=== PATIENT | male | born 1995 | race African-American/Black ===

== ENCOUNTER 2017-07-11 11:01 | Inpatient (IN) | payer OTHER ==
[2017-07-11 11:15] VITALS: BMI 27.1
--- NOTE | 2017-07-11 13:41 | HP ---
CIWA Score - CIWA Score Nausea/Vomitin-No Nausea/No Vomiting Muscle Tremors: 4-Moderate,w/Arms Extend Anxiety: 4-Mod. Anxious/Guarded Agitation: 4-Moderately Restless Paroxysmal Sweats: 3 Orientation: 0-Oriented Tacttile Disturbances: 0-None Auditory Disturbances: 0-None Visual Disturbances: 0-None Headache: 0-None Present CIWA-Ar Total Score: 15 Admission ROS [facility] - HPI Allergies/Adverse Reactions: Allergies Allergy/AdvReac Type Severity Reaction Status Date / Time Pork/Porcine Containing Allergy Severe Nausea Verified 07/11/17 11:32 Products - Ebola screening Have you traveled outside of the country in the last 21 days: No Have you had contact with anyone from an Ebola affected area: No Have you been sick,other than usual withdrawal symptoms: No Do you have a fever: No - Review of Systems Constitutional: No Symptoms Reported EENT: reports: No Symptoms Reported Respiratory: reports: No Symptoms reported Cardiac: reports: No Symptoms Reported GI: reports: No Symptoms Reported : reports: No Symptoms Reported Musculoskeletal: reports: No Symptoms Reported Integumentary: reports: No Symptoms Reported Neuro: reports: Headache Endocrine: reports: No Symptoms Reported Hematology: reports: No Symptoms Reported Psychiatric: reports: Judgement Intact, Mood/Affect Appropiate, Orientated x3, Agitated, Anxious Other Systems: Reviewed and Negative Patient History - Patient Medical History Hx Anemia: No Hx Asthma: Yes (Pt is on MDI) Hx Chronic Obstructive Pulmonary Disease (COPD): No Hx Cancer: No Hx Cardiac Disorders: No Hx Congestive Heart Failure: No Hx Hypertension: No Hx Hypercholesterolemia: No Hx Pacemaker: No HX Cerebrovascular Accident: No Hx Seizures: No Hx Dementia: No Hx Diabetes: No Hx Gastrointestinal Disorders: No Hx Liver Disease: No Hx Genitourinary Disorders: No Hx Sexually Transmitted Disorders: No Hx Renal Disease (ESRD): No Hx Thyroid Disease: No Hx Human Immunodeficiency Virus (HIV): No (negative) Hx Hepatitis C: No (negative) Hx Depression: Yes Hx Suicide Attempt: No (denies) Hx Bipolar Disorder: Yes Hx Schizophrenia: Yes - Patient Surgical History Past Surgical History: Yes Hx Orthopedic Surgery: Yes (Bilateral knee sx as a child.) Anesthesia Reaction: No - PPD History Previous Implant?: Yes Documented Results: Negative w/o proof Implanted On Prior [facility] Admission?: No PPD to be Administered?: Yes - Reproductive History Patient is a Female of Child Bearing Age (11 -55 yrs old): Yes - Smoking Cessation Smoking history: Current every day smoker Have you smoked in the past 12 months: Yes Aproximately how many cigarettes per day: 4 Hx Chewing Tobacco Use: No Initiated information on smoking cessation: Yes 'Breaking Loose' booklet given: 07/11/17 - Substance & Tx. History Hx Alcohol Use: Yes Hx Substance Use: Yes Substance Use Type: Alcohol, Marijuana Hx Substance Use Treatment: No - Substances Abused Alcohol Route: Oral Frequency: Daily Amount used: 1 PINT VODKA Age of first use: 17 Date of Last Use: 07/10/17 Marijuana/Hashish Route: Smoking Frequency: Daily Amount used: 2 BLUNTS Age of first use: 13 Date of Last Use: 07/10/17 Family Disease History - Family Disease History Family Disease History: Diabetes: Grandparent Admission Physical Exam [facility] - Vital Signs Vital Signs: Vital Signs - 24 hr 07/11/17 11:10 Temperature 97.1 F L Pulse Rate 55 L Respiratory 18 Rate Blood Pressure 131/60 - Physical General Appearance: Yes: Appropriately Dressed, Moderate Distress, Irritable, Anxious HEENTM: Yes: Normal Voice, Nasal Congestion Respiratory: Yes: Lungs Clear, Normal Breath Sounds, No Respiratory Distress Neck: Yes: No masses,lesions,Nodules Breast: Yes: Within Normal Limits Cardiology: Yes: Regular Rhythm, Regular Rate, S1, S2 Abdominal: Yes: Normal Bowel Sounds Genitourinary: Yes: Within Normal Limits Back: Yes: Normal Inspection Musculoskeletal: Yes: Back pain Extremities: Yes: Normal Capillary Refill, Normal Inspection, Non-Tender, Tremors Neurological: Yes: Fully Oriented, Alert, Normal Response Integumentary: Yes: Normal Color Lymphatic: Yes: Within Normal Limits - Diagnostic (1) Alcohol dependence with uncomplicated withdrawal Current Visit: Yes Status: Chronic (2) Nicotine dependence Current Visit: Yes Status: Chronic Qualifiers: Nicotine product type: cigarettes Substance use status: uncomplicated Qualified Code(s): F17.210 - Nicotine dependence, cigarettes, uncomplicated Cleared for Admission [facility] - Detox or Rehab [facility] Level of Care: Medically Managed Detox Regimen/Protocol: Librium [facility] Breath Alcohol Content Breath Alcohol Content: 0 Urine Drug Screen - Results Drug Screen Negative: No Urine Drug Screen Results: THC-Marijuana
[2017-07-11] MEDS ORDERED: MAGNESIUM HYDROX 2400MG/30ML ORAL SUSPENSION 30 ML CUP PO PRN (13:42)
[2017-07-11] MEDS ORDERED: ACETAMINOPHEN 325 MG TABLET (FP) PO PRN (13:42)
[2017-07-11] MEDS ORDERED: guaiFENesin/D-METHORPHAN HB 10 ML UNIT-DOSE CUPS PO PRN (13:42)
[2017-07-11] MEDS ORDERED: P-EPHED 60MG/TRIPROLIDI 2.5MG TABLET PO PRN (13:42)
[2017-07-11] MEDS ORDERED: IBUPROFEN 400 MG TABLET (FP) PO PRN (13:42)
[2017-07-11] MEDS ORDERED: MAG HYDROX/AL HYDROX/SIMETH 30 ML UNIT-DOSE CUP PO PRN (13:42)
[2017-07-11] MEDS ORDERED: chlordiazePOXIDE HCL 25 MG CAPSULE PO PRN (13:42)
[2017-07-11] MEDS ORDERED: LOPERAMIDE HCL 2 MG CAPSULE PO PRN (13:42)
[2017-07-11] MEDS ORDERED: MENTHOL/PHENOL 1 EACH UD MM PRN (13:42)
[2017-07-11] MEDS ORDERED: MAGNESIUM CITRATE 300 ML BOTTLE PO PRN (13:42)
[2017-07-11] MEDS ORDERED: hydrOXYzine PAMOATE 50 MG CAPSULE (FP) PO PRN (13:42)
[2017-07-11] MEDS ORDERED: NICOTINE POLACRILEX 4 MG GUM BUC PRN (13:42)
[2017-07-11] MEDS ORDERED: ALBUTEROL SO4 18 GM HFA INHALER IH PRN (13:43)
[2017-07-11] MEDS ORDERED: chlordiazePOXIDE HCL 25 MG CAPSULE PO ONE (13:59)
[2017-07-11 16:44] LABS: URINE APPEARANCE CLEAR; URINE BILIRUBIN NEGATIVE (NEGATIVE); URINE BLOOD NEGATIVE (NEGATIVE); URINE COLOR STRAW; URINE GLUCOSE (UA) NEGATIVE (NEGATIVE); URINE KETONE NEGATIVE (NEGATIVE); URINE LEUK ESTERASE TRACE (NEGATIVE); URINE NITRITE NEGATIVE (NEGATIVE); URINE PROTEIN NEGATIVE (NEGATIVE); URINE UROBILINOGEN NEGATIVE mg/dL (0.2-1.0)
[2017-07-11 17:24] LABS: URINE WBC 2 /hpf (3-5)
[2017-07-11] MEDS: chlordiazePOXIDE HCL 25 MG CAPSULE PO SCH ×2 (17:56→22:27)
[2017-07-11 19:33] LABS: URINE LEUK ESTERASE TRACE (NEGATIVE)
[2017-07-11] MEDS: THIAMINE HCL 100 MG TABLET (FP) PO SCH (22:27)
[2017-07-12] MEDS: chlordiazePOXIDE HCL 25 MG CAPSULE PO SCH ×4 (06:21→22:33)
--- NOTE | 2017-07-12 10:52 | EKG ---
Test Reason : Blood Pressure : / mmHG Vent. Rate : 056 BPM Atrial Rate : 056 BPM P-R Int : 144 ms QRS Dur : 088 ms QT Int : 418 ms P-R-T Axes : 057 076 045 degrees QTc Int : 403 ms SINUS BRADYCARDIA WITH SINUS ARRHYTHMIA POSSIBLE ANTEROSEPTAL LEADS MISPLACED ANTERIOR INFARCT , AGE UNDETERMINED ABNORMAL ECG NO PREVIOUS ECGS AVAILABLE Confirmed by MD RAHEL, CHARLES ([id number]) on 07/12/2017 10:52:18 AM Referred By: Confirmed By:CHARLES MCGINNIS MD
[2017-07-12 11:10] LABS: MCH 29.4 pg (25.7-33.7); MCHC 32.7 g/dl (32.0-35.9); MEAN CELL VOLUME 90.1 fl (80-96); MEAN PLT VOLUME 8.2 fl (7.5-11.1); PLATELET COUNT 261 K/MM3 (134-434); RDW 14.2 % (11.9-15.9); WHITE BLOOD COUNT 4.9 K/mm3 (4.0-10.0)
[2017-07-12] MEDS: NICOTINE 21 MG/24 HOURS TOPICAL PATCH TD SCH (11:12)
[2017-07-12] MEDS: PRENATAL VITAMINS W/ FOLIC ACID TABLET (FP) PO SCH (11:12)
[2017-07-12 11:22] LABS: ALBUMIN 3.6 g/dl (3.4-5.0); ALK PHOS 71 U/L (45-117); ANION GAP 5 (8-16); BILIRUBIN,TOTAL 0.9 mg/dL (0.2-1.0); CALCIUM 8.7 mg/dL (8.5-10.1); CO2 28 mmol/L (21-32); GLUCOSE,RANDOM 66 mg/dL (74-106); SGOT/AST 29 U/L (15-37); SGPT/ALT 35 U/L (12-78); TOT PROT 6.3 g/dl (6.4-8.2)
--- NOTE | 2017-07-12 12:15 | CONSULT ---
[facility] Psychiatric Consult - Data Date of interview: 07/12/17 Admission source: [facility] Identifying data: Pt. is a 21 year old single male. This is patient's first admission to [facility]. Pt. admitted to for detox from alcohol and marijuana dependence. Substance Abuse History: Following information confirmed with Dr. Haynes: Smoking Cessation. Smoking history: Current every day smoker. Have you smoked in the past 12 months: Yes. Aproximately how many cigarettes per day:4. Alcohol: Route: Oral Frequency: Daily Amount used: 1 PINT VODKA. Age of first use: 17 Date of Last Use: 07/10/17. Marijuana/Hashish Route: Smoking Frequency : Daily Amount used: 2 BLUNTS Age of first use: 13. Date of Last Use: 07/10/17 Medical History: Asthma Psychiatric History: Pt. self reports a diagnosis of bipolar disorder and schizophrena. Pt. reports last taking psychotrophic medications while detoxing at [facility] in [address] [place] [address] approximately one year ago. Pt. only able to recall taking cogentin. Stated the doctor at [facility] diagnosed him with bipolar and schizophrenia. Pt. denies h/o past psychiatric hospitalizations and suicide attempts. Physical/Sexual Abuse/Trauma History: Denies. Mental Status Exam - Mental Status Exam Alert and Oriented to: Time, Place, Person Cognitive Function: Fair Patient Appearance: Well Groomed Mood: Euthymic Affect: Appropriate, Mood Congruent Patient Behavior: Appropriate, Cooperative Speech Pattern: Clear, Appropriate Voice Loudness: Normal Thought Process: Intact Thought Disorder: Not Present Hallucinations: Denies Suicidal Ideation: Denies Homicidal Ideation: Denies Insight/Judgement: Fair Sleep: Fair Appetite: Fair Muscle strength/Tone: Normal Gait/Station: Normal Psychiatric Findings - Problem List ([place] 1, 2,3) (1) Alcohol dependence with uncomplicated withdrawal Current Visit: Yes Status: Chronic (2) Nicotine dependence Current Visit: Yes Status: Chronic Qualifiers: Nicotine product type: cigarettes Substance use status: uncomplicated Qualified Code(s): F17.210 - Nicotine dependence, cigarettes, uncomplicated (3) Marijuana dependence Current Visit: Yes Status: Acute (4) Substance induced mood disorder Current Visit: No Status: Suspected - Initial Treatment Plan Initial Treatment Plan: Psychoeducation provided. Detox in progress. Psychotrophic medications not needed at this time.
--- NOTE | 2017-07-12 12:59 | PN ---
[facility] CIWA - CIWA Score Nausea/Vomitin-No Nausea/No Vomiting Muscle Tremors: 3 Anxiety: 3 Agitation: 4-Moderately Restless Paroxysmal Sweats: 3 Orientation: 0-Oriented Tacttile Disturbances: 0-None Auditory Disturbances: 0-None Visual Disturbances: 0-None Headache: 0-None Present CIWA-Ar Total Score: 13 BHS Progress Note (SOAP) Subjective: Anxiety,tremors,sweating,restless,interrupted sleep Objective: 07/12/17 12:58 Vital Signs - 8 hr 07/12/17 07/12/17 06:00 10:00 Temperature 97.1 F L 97.9 F Pulse Rate 49 L 48 L Respiratory 18 16 Rate Blood Pressure 139/68 140/57 Laboratory Tests 07/11/17 07/12/17 07/12/17 15:15 06:00 06:00 WBC 4.9 RBC 4.46 Hgb 13.1 Hct 40.2 MCV 90.1 MCH 29.4 MCHC 32.7 RDW 14.2 Plt Count 261 MPV 8.2 Sodium 139 Potassium 4.5 Chloride 106 Carbon Dioxide 28 Anion Gap 5 L BUN 18 Creatinine 1.0 Creat Clearance w eGFR > 60 Random Glucose 66 L Calcium 8.7 Total Bilirubin 0.9 AST 29 ALT 35 Alkaline Phosphatase 71 Total Protein 6.3 L Albumin 3.6 Urine Color Straw Urine Appearance Clear Urine pH 5.0 Ur Specific [place] 1.006 Urine Protein Negative Urine Glucose (UA) Negative Urine Ketones Negative Urine Blood Negative Urine Nitrite Negative Urine Bilirubin Negative Urine Urobilinogen Negative Ur Leukocyte Esterase Trace H Urine WBC (Auto) 2 Urine RBC (Auto) None Ur Epithelial Cells Rare RPR Titer 07/12/17 06:00 WBC RBC Hgb Hct MCV MCH MCHC RDW Plt Count MPV Sodium Potassium Chloride Carbon Dioxide Anion Gap BUN Creatinine Creat Clearance w eGFR Random Glucose Calcium Total Bilirubin AST ALT Alkaline Phosphatase Total Protein Albumin Urine Color Urine Appearance Urine pH Ur Specific [place] Urine Protein Urine Glucose (UA) Urine Ketones Urine Blood Urine Nitrite Urine Bilirubin Urine Urobilinogen Ur Leukocyte Esterase Urine WBC (Auto) Urine RBC (Auto) Ur Epithelial Cells RPR Titer Nonreactive labs noted Assessment: 07/12/17 12:58 withdrawal sx. Plan: Continue detox
[2017-07-12] MEDS: THIAMINE HCL 100 MG TABLET (FP) PO SCH (22:33)
[2017-07-13] MEDS: chlordiazePOXIDE HCL 25 MG CAPSULE PO SCH ×2 (05:13→10:24)
--- NOTE | 2017-07-13 09:48 | PN ---
[facility] CIWA - CIWA Score Nausea/Vomitin-No Nausea/No Vomiting Muscle Tremors: 2 Anxiety: 3 Agitation: 4-Moderately Restless Paroxysmal Sweats: 3 Orientation: 0-Oriented Tacttile Disturbances: 0-None Auditory Disturbances: 0-None Visual Disturbances: 0-None Headache: 0-None Present CIWA-Ar Total Score: 12 S Progress Note (SOAP) Subjective: Anxiety,tremors,restless,interrupted sleep,sweating. Objective: 07/13/17 09:47 Vital Signs - 8 hr 07/13/17 07/13/17 03:30 06:57 Temperature 97.9 F Pulse Rate 63 Respiratory 18 16 Rate Blood Pressure 146/82 Laboratory Last Values WBC 4.9 K/mm3 (4.0-10.0) 07/12/17 06:00 RBC 4.46 M/mm3 (4.00-5.60) 07/12/17 06:00 Hgb 13.1 GM/dL (11.7-16.9) 07/12/17 06:00 Hct 40.2 % (35.4-49) 07/12/17 06:00 MCV 90.1 fl (80-96) 07/12/17 06:00 MCH 29.4 pg (25.7-33.7) 07/12/17 06:00 MCHC 32.7 g/dl (32.0-35.9) 07/12/17 06:00 RDW 14.2 % (11.9-15.9) 07/12/17 06:00 Plt Count 261 K/MM3 (134-434) 07/12/17 06:00 MPV 8.2 fl (7.5-11.1) 07/12/17 06:00 Sodium 139 mmol/L (136-145) 07/12/17 06:00 Potassium 4.5 mmol/L (3.5-5.1) 07/12/17 06:00 Chloride 106 mmol/L (98-107) 07/12/17 06:00 Carbon Dioxide 28 mmol/L (21-32) 07/12/17 06:00 Anion Gap 5 (8-16) L 07/12/17 06:00 BUN 18 mg/dL (7-18) 07/12/17 06:00 Creatinine 1.0 mg/dL (0.7-1.3) 07/12/17 06:00 Creat Clearance w eGFR > 60 (>60) 07/12/17 06:00 Random Glucose 66 mg/dL (74-106) L 07/12/17 06:00 Calcium 8.7 mg/dL (8.5-10.1) 07/12/17 06:00 Total Bilirubin 0.9 mg/dL (0.2-1.0) 07/12/17 06:00 AST 29 U/L (15-37) 07/12/17 06:00 ALT 35 U/L (12-78) 07/12/17 06:00 Alkaline Phosphatase 71 U/L (45-117) 07/12/17 06:00 Total Protein 6.3 g/dl (6.4-8.2) L 07/12/17 06:00 Albumin 3.6 g/dl (3.4-5.0) 07/12/17 06:00 Urine Color Straw 07/11/17 15:15 Urine Appearance Clear 07/11/17 15:15 Urine pH 5.0 (5.0-8.0) 07/11/17 15:15 Ur Specific [place] 1.006 (1.001-1.035) 07/11/17 15:15 Urine Protein Negative (NEGATIVE) 07/11/17 15:15 Urine Glucose (UA) Negative (NEGATIVE) 07/11/17 15:15 Urine Ketones Negative (NEGATIVE) 07/11/17 15:15 Urine Blood Negative (NEGATIVE) 07/11/17 15:15 Urine Nitrite Negative (NEGATIVE) 07/11/17 15:15 Urine Bilirubin Negative (NEGATIVE) 07/11/17 15:15 Urine Urobilinogen Negative mg/dL (0.2-1.0) 07/11/17 15:15 Ur Leukocyte Esterase Trace (NEGATIVE) H 07/11/17 15:15 Urine WBC (Auto) 2 /hpf (3-5) 07/11/17 15:15 Urine RBC (Auto) None /hpf (0-3) 07/11/17 15:15 Ur Epithelial Cells Rare /HPF (FEW) 07/11/17 15:15 RPR Titer Nonreactive (NONREACTIVE) 07/12/17 06:00 labs noted Assessment: 07/13/17 09:48 Withdrawal sx. Plan: Continue detox
[2017-07-13] MEDS: PRENATAL VITAMINS W/ FOLIC ACID TABLET (FP) PO SCH (10:22)
[2017-07-13] MEDS: NICOTINE 21 MG/24 HOURS TOPICAL PATCH TD SCH (10:22)
[2017-07-13 10:29] VITALS: BP 136/58; PULSE 60; TEMP 96.3
--- NOTE | 2017-07-13 12:59 | DS ---
[facility] Detox Discharge Summary Admission Date: 07/11/17 Discharge Date: 07/13/17 - History Present History: Alcohol Dependence Pertinent Past History: Denies - Physical Exam Results Vital Signs: Vital Signs Temperature 96.3 F L 07/13/17 10:00 Pulse Rate 60 07/13/17 10:00 Respiratory Rate 16 07/13/17 10:00 Blood Pressure 136/58 07/13/17 10:00 O2 Sat by Pulse Oximetry (%) Pertinent Admission Physical Exam Findings: Withdrawal sx. Laboratory Tests 07/11/17 07/12/17 07/12/17 15:15 06:00 06:00 WBC 4.9 RBC 4.46 Hgb 13.1 Hct 40.2 MCV 90.1 MCH 29.4 MCHC 32.7 RDW 14.2 Plt Count 261 MPV 8.2 Sodium 139 Potassium 4.5 Chloride 106 Carbon Dioxide 28 Anion Gap 5 L BUN 18 Creatinine 1.0 Creat Clearance w eGFR > 60 Random Glucose 66 L Calcium 8.7 Total Bilirubin 0.9 AST 29 ALT 35 Alkaline Phosphatase 71 Total Protein 6.3 L Albumin 3.6 Urine Color Straw Urine Appearance Clear Urine pH 5.0 Ur Specific [place] 1.006 Urine Protein Negative Urine Glucose (UA) Negative Urine Ketones Negative Urine Blood Negative Urine Nitrite Negative Urine Bilirubin Negative Urine Urobilinogen Negative Ur Leukocyte Esterase Trace H Urine WBC (Auto) 2 Urine RBC (Auto) None Ur Epithelial Cells Rare RPR Titer 07/12/17 06:00 WBC RBC Hgb Hct MCV MCH MCHC RDW Plt Count MPV Sodium Potassium Chloride Carbon Dioxide Anion Gap BUN Creatinine Creat Clearance w eGFR Random Glucose Calcium Total Bilirubin AST ALT Alkaline Phosphatase Total Protein Albumin Urine Color Urine Appearance Urine pH Ur Specific [place] Urine Protein Urine Glucose (UA) Urine Ketones Urine Blood Urine Nitrite Urine Bilirubin Urine Urobilinogen Ur Leukocyte Esterase Urine WBC (Auto) Urine RBC (Auto) Ur Epithelial Cells RPR Titer Nonreactive labs noted - Treatment Patient has Accepted a Rehab Referral to: [facility] meetings - Medication Discharge Medications: Ambulatory Orders Albuterol Sulfate Inhaler - [Ventolin Hfa Inhaler -] 2 inh PO Q4H PRN 07/11/17 - Diagnosis (1) Alcohol dependence with uncomplicated withdrawal Current Visit: Yes Status: Chronic (2) Nicotine dependence Current Visit: Yes Status: Chronic Qualifiers: Nicotine product type: cigarettes Substance use status: uncomplicated Qualified Code(s): F17.210 - Nicotine dependence, cigarettes, uncomplicated - AMA Did Patient Leave Against Medical Advice: Yes
[2017-07-13] MEDS ORDERED: chlordiazePOXIDE 5 MG CAPSULE PO SCH (17:00)
[2017-07-14] MEDS ORDERED: chlordiazePOXIDE HCL 10 MG CAPSULE PO SCH (17:00)
== END 2017-07-13 11:08 | disposition left against medical advice (07) | DRG 770 ==
LOC: YASAS 11:01 → Y6N 13:10
PROVIDERS: ADMIT Internal Medicine; ATTEND Internal Medicine
PROC: HZ2ZZZZ Detoxification Services for Substance Abuse Treatment (ICD-10-PCS; principal; 2017-07-11)
DX: F10.230 Alcohol dependence with withdrawal, uncomplicated (principal); F17.210 Nicotine dependence, cigarettes, uncomplicated; F12.20 Cannabis dependence, uncomplicated; F19.24 Other psychoactive substance dependence with psychoactive substance-induced mood disorder
CPT/HCPCS: 36415; 71020-TC; 80053; 81003; 81015; 85027; 86593; 93005; 93010

== ENCOUNTER 2017-10-24 10:00 | Inpatient (IN) | payer OTHER ==
[2017-10-24 10:46] VITALS: BP 139/82; PULSE 51; TEMP 98.2; BMI 27.1
--- NOTE | 2017-10-24 13:21 | HP ---
Admission ROS S - [facility] Chief Complaint: i want to go to rehab Allergies/Adverse Reactions: Allergies Allergy/AdvReac Type Severity Reaction Status Date / Time Pork/Porcine Containing AdvReac Severe Nausea Verified 10/24/17 10:50 Products History of Present Illness: 21 years old male with long history of alcohol opiate nicotine dependence has asthma bipolar ii is admitted to rehab Exam Limitations: No Limitations - Ebola screening Have you traveled outside of the country in the last 21 days: No Have you had contact with anyone from an Ebola affected area: No Have you been sick,other than usual withdrawal symptoms: No Do you have a fever: No - Review of Systems Constitutional: No Symptoms Reported EENT: reports: No Symptoms Reported Respiratory: reports: No Symptoms reported Cardiac: reports: No Symptoms Reported GI: reports: No Symptoms Reported : reports: No Symptoms Reported Musculoskeletal: reports: No Symptoms Reported Integumentary: reports: No Symptoms Reported Neuro: reports: No Symptoms reported Endocrine: reports: No Symptoms Reported Hematology: reports: No Symptoms Reported Psychiatric: reports: No Sypmtoms Reported, Judgement Intact, Orientated x3 Other Systems: Reviewed and Negative Patient History - Patient Medical History Hx Anemia: No Hx Asthma: Yes Hx Chronic Obstructive Pulmonary Disease (COPD): No Hx Cancer: No Hx Cardiac Disorders: No Hx Congestive Heart Failure: No Hx Hypertension: No Hx Hypercholesterolemia: No Hx Pacemaker: No HX Cerebrovascular Accident: No Hx Seizures: No Hx Dementia: No Hx Diabetes: No Hx Gastrointestinal Disorders: No Hx Liver Disease: No Hx Genitourinary Disorders: No Hx Sexually Transmitted Disorders: No Hx Renal Disease (ESRD): No Hx Thyroid Disease: No Hx Human Immunodeficiency Virus (HIV): No (negative) Hx Hepatitis C: No (negative) Hx Depression: No Hx Suicide Attempt: No Hx Bipolar Disorder: Yes Hx Schizophrenia: No - Patient Surgical History Past Surgical History: Yes Hx Neurologic Surgery: No Hx Cataract Extraction: No Hx Cardiac Surgery: No Hx Lung Surgery: No Hx Breast Surgery: No Hx Breast Biopsy: No Hx Abdominal Surgery: No Hx Appendectomy: No Hx Cholecystectomy: No Hx Genitourinary Surgery: No Hx Orthopedic Surgery: Yes (Bilateral knee sx as a child.) Anesthesia Reaction: No - PPD History Previous Implant?: Yes Documented Results: Positive w/o proof Implanted On Prior R Admission?: No PPD to be Administered?: No - Smoking Cessation Smoking history: Current every day smoker Have you smoked in the past 12 months: Yes Aproximately how many cigarettes per day: 4 Cigars Per Day: 0 Hx Chewing Tobacco Use: No Initiated information on smoking cessation: Yes 'Breaking Loose' booklet given: 10/24/17 - Substance & Tx. History Hx Alcohol Use: Yes Hx Substance Use: Yes Substance Use Type: Alcohol, Heroin, Marijuana Hx Substance Use Treatment: Yes (07/2017) - Substances Abused Heroin Route: Inhalation Frequency: 3-6 times per week Amount used: 1 bag Age of first use: 21 Date of Last Use: 10/16/17 Alcohol-rum Route: Oral Frequency: 3-6 times per week Amount used: 1 pt. Age of first use: 15 Date of Last Use: 10/16/17 Marijuana Route: Smoking Frequency: Daily Amount used: $10 Age of first use: 13 Date of Last Use: 10/22/17 Family Disease History - Family Disease History Family Disease History: Diabetes: Grandparent, Other: Father ( ) Admission Physical Exam [facility] - Vital Signs Vital Signs: Vital Signs - 24 hr 10/24/17 10:44 Temperature 98.2 F Pulse Rate 51 L Respiratory 18 Rate Blood Pressure 139/82 - Physical General Appearance: Yes: No Apparent Distress, Nourished, Appropriately Dressed HEENTM: Yes: Hearing grossly Normal, Normal ENT Inspection, Normocephalic, Normal Voice Respiratory: Yes: Chest Non-Tender, Lungs Clear, Normal Breath Sounds, No Respiratory Distress, No Accessory Muscle Use Neck: Yes: Supple, Trachea in good position Cardiology: Yes: Regular Rhythm, S1, S2, Bradycardia Abdominal: Yes: Normal Bowel Sounds, Non Tender, Soft Genitourinary: Yes: Within Normal Limits Back: Yes: Within Normal Limits, Normal Inspection Musculoskeletal: Yes: full range of Motion, Gait Steady Extremities: Yes: Normal Inspection, Normal Range of Motion, Non-Tender Neurological: Yes: Fully Oriented, Alert, Motor Strength 5/5, Normal Mood/Affect , Normal Response Integumentary: Yes: Warm Lymphatic: Yes: Within Normal Limits - Diagnostic (1) Opioid dependence with withdrawal Current Visit: Yes Status: Acute (2) Asthma Current Visit: Yes Status: Chronic Qualifiers: Asthma severity: mild Asthma persistence: intermittent Asthma complication type: with status asthmaticus Qualified Code(s): J45.22 - Mild intermittent asthma with status asthmaticus (3) Positive PPD, treated Current Visit: Yes Status: Resolved (4) Bipolar II disorder Current Visit: Yes Status: Suspected (5) Alcohol dependence with uncomplicated withdrawal Current Visit: Yes Status: Acute (6) Nicotine dependence Current Visit: Yes Status: Acute Qualifiers: Nicotine product type: cigarettes Substance use status: in withdrawal Qualified Code(s): F17.213 - Nicotine dependence, cigarettes, with withdrawal Cleared for Admission [facility] - Detox or Rehab [facility] Level of Care: Observation Bed Detox Regimen/Protocol: Not Applicable Claeared for Rehab Admission: Yes [facility] Breath Alcohol Content Breath Alcohol Content: 0 Urine Drug Screen - Results Drug Screen Negative: No Urine Drug Screen Results: THC-Marijuana Inpatient Rehab Admission - Initial Determination Are CD services needed?: Yes Free of communicable disease: Yes Not in need of hospitalization: Yes - Rehab Admission Criteria Previous failed treatment: Yes Poor recovery environment: Yes Comorbidities: Yes Lacks judgement: No Patient is meeting Inpatient Rehab admission criteria:: Yes
[2017-10-24] MEDS ORDERED: MAGNESIUM CITRATE 300 ML BOTTLE PO PRN (13:24)
[2017-10-24] MEDS ORDERED: MENTHOL/PHENOL 1 EACH UD MM PRN (13:24)
[2017-10-24] MEDS ORDERED: ALBUTEROL SO4 18 GM HFA INHALER IH PRN (13:24)
[2017-10-24] MEDS ORDERED: IBUPROFEN 400 MG TABLET (FP) PO PRN (13:24)
[2017-10-24] MEDS ORDERED: guaiFENesin/D-METHORPHAN HB 10 ML UNIT-DOSE CUPS PO PRN (13:24)
[2017-10-24] MEDS ORDERED: LOPERAMIDE HCL 2 MG CAPSULE PO PRN (13:24)
[2017-10-24] MEDS ORDERED: P-EPHED 60MG/TRIPROLIDI 2.5MG TABLET PO PRN (13:24)
[2017-10-24] MEDS ORDERED: MAGNESIUM HYDROX 2400MG/30ML ORAL SUSPENSION 30 ML CUP PO PRN (13:24)
[2017-10-24] MEDS ORDERED: NICOTINE POLACRILEX 2 MG GUM BUC PRN (13:24)
[2017-10-24] MEDS ORDERED: MAG HYDROX/AL HYDROX/SIMETH 30 ML UNIT-DOSE CUP PO PRN (13:24)
[2017-10-24] MEDS ORDERED: ACETAMINOPHEN 325 MG TABLET (FP) PO PRN (13:24)
[2017-10-24 15:03] LABS: HEMATOCRIT 43.2 % (35.4-49); HEMOGLOBIN 14.3 GM/dL (11.7-16.9); MCH 30.3 pg (25.7-33.7); MCHC 33.1 g/dl (32.0-35.9); MEAN CELL VOLUME 91.6 fl (80-96); MEAN PLT VOLUME 8.1 fl (7.5-11.1); PLATELET COUNT 278 K/MM3 (134-434); RBC 4.72 M/mm3 (4.00-5.60); RDW 13.6 % (11.9-15.9); WHITE BLOOD COUNT 3.9 K/mm3 (4.0-10.0)
[2017-10-24 15:19] LABS: CHLORIDE 103 mmol/L (98-107); POTASSIUM 4.5 mmol/L (3.5-5.1); SODIUM 139 mmol/L (136-145)
[2017-10-24 15:31] LABS: ALBUMIN 4.4 g/dl (3.4-5.0); ALK PHOS 77 U/L (45-117); ANION GAP 11 (8-16); BILIRUBIN,TOTAL 1.5 mg/dL (0.2-1.0); BLOOD UREA NITROGEN 17 mg/dL (7-18); CALCIUM 9.5 mg/dL (8.5-10.1); CO2 25 mmol/L (21-32); CREATININE 0.9 mg/dL (0.7-1.3); GLUCOSE,RANDOM 85 mg/dL (74-106); SGOT/AST 28 U/L (15-37); SGPT/ALT 29 U/L (12-78); TOT PROT 7.3 g/dl (6.4-8.2)
[2017-10-24 18:35] LABS: URINE APPEARANCE CLEAR; URINE BILIRUBIN NEGATIVE (NEGATIVE); URINE BLOOD NEGATIVE (NEGATIVE); URINE COLOR LTYELLOW; URINE GLUCOSE (UA) NEGATIVE (NEGATIVE); URINE KETONE NEGATIVE (NEGATIVE); URINE LEUK ESTERASE NEGATIVE (NEGATIVE); URINE NITRITE NEGATIVE (NEGATIVE); URINE PROTEIN NEGATIVE (NEGATIVE); URINE UROBILINOGEN NEGATIVE mg/dL (0.2-1.0)
--- NOTE | 2017-10-24 19:52 | PN ---
S Progress Note Note: Patient was admitted to rehab unit, patient walked out the unit and expressed "this is not for me."
[2017-10-24] MEDS ORDERED: THIAMINE HCL 100 MG TABLET (FP) PO SCH (22:00)
[2017-10-24] MEDS ORDERED: MELATONIN 5 MG TABLETS PO SCH (22:00)
[2017-10-25] MEDS ORDERED: PRENATAL VITAMINS W/ FOLIC ACID TABLET (FP) PO SCH (10:00)
[2017-10-25] MEDS ORDERED: NICOTINE 14 MG/24 HOURS TOPICAL PATCH TD SCH (10:00)
== END 2017-10-24 19:30 | disposition left against medical advice (07) | DRG 770 ==
LOC: YASAS 10:00 → Y5N 13:52
PROVIDERS: ADMIT Psychiatry & Neurology Psychiatry; ATTEND Psychiatry & Neurology Psychiatry
PROC: HZ42ZZZ Group Counseling for Substance Abuse Treatment, Cognitive-Behavioral (ICD-10-PCS; principal; 2017-10-24)
DX: F11.20 Opioid dependence, uncomplicated (principal); F10.20 Alcohol dependence, uncomplicated; F12.20 Cannabis dependence, uncomplicated; F17.213 Nicotine dependence, cigarettes, with withdrawal; F31.81 Bipolar II disorder; J45.22 Mild intermittent asthma with status asthmaticus
CPT/HCPCS: 36415; 80053; 81003; 85027; 86593